=== PATIENT | female | born 1955 | race Caucasian/White ===

== ENCOUNTER 2016-12-31 13:43 | Inpatient (IN) ==
[2016-12-31] MEDS ORDERED: ONDANSETRON 4 MG/2 ML VIAL IM STA (14:03)
[2016-12-31] MEDS ORDERED: methylPREDNISolone SOD SUC 125 MG/2 ML VIAL IV STA (14:03)
[2016-12-31] MEDS ORDERED: SODIUM CHLORIDE 0.9% 1,000 ML IV STA (14:05)
--- NOTE | 2016-12-31 14:09 | Emergency Department Note ---
Ines Darling Brittany, am scribing for, and in the presence of, Dav Packer MD 14: 05. Birdie Darling James D, MD, personally performed the services described in this documentation, ascribed by Jaida Chacon in my presence, and it is both accurate and complete . Arrival - Arrival Chief Complaint: Non-Specific Stated Complaint: strep throat/back pain, fever ED Nursing Triage Note: pt has strep throat and back onset yesterday. Mode of Arrival: Wheelchair Limitations: No Limitations Source: Patient, RN Notes Reviewed Time Seen by Provider: 12/31/16 13:53 - History of Present Illness HPI Narrative: This is a 61 y/o white female, who presents to the ED with c/o back pain which started yesterday. She states she was seen yesterday at a walk in clinic and was DX with strep throat. She states the back pain started after she was "swabbed". She notes a sputum productive cough, fever and chills. She states the fever is subjective. She notes being SOB as well. She reports she is on home o2. She notes CP which started 1.5 hours ago. She describes the chest pain as a sharp pain which is constant. She reports she smokes 1/2 PPD. She denies a sore throat. She reports vomiting but this appears chronic from some unknown reason. Pt has no other complaints/pain in the ED at this time. Pt has a PMHx of HTN, COPD, and OA. Pt denies a surgical Hx. Pt denies a family medical Hx. Pt is a current every day smoker. Onset (ago): day(s) (Started yesterday) Consistency: constant Severity: moderate Allergies/Adverse Reactions: Allergies Allergy/AdvReac Type Severity Reaction Status Date / Time Sulfa (Sulfonamide Allergy Unknown/Unable Verified 12/31/16 13:49 Antibiotics) to obtain Home Medications: Home Medications Medication Instructions Recorded Confirmed Type Albuterol Sulfate [Ventolin HFA] 2 puffs INH Q4H PRN 12/31/16 12/31/16 History Amitriptyline [Elavil] 75 mg PO BID 12/31/16 12/31/16 History Atenolol [Atenolol] 50 mg PO QAM 12/31/16 12/31/16 History Diclofenac Sodium 75 mg PO BID 12/31/16 12/31/16 History Esomeprazole Magnesium [Nexium] 40 mg PO QAM 12/31/16 12/31/16 History Fluticasone/Salmeterol 500-50 2 puff INH BID 12/31/16 12/31/16 History [Advair 500-50] Oxycodone HCl/Acetaminophen 1 each PO Q4H PRN 12/31/16 12/31/16 History [Oxycodone-Acetaminophen 10-325] Penicillin Vk Tab 500 mg PO Q12HR 12/31/16 12/31/16 History Review of System - Review of System 12 point system: reviewed and no additional remarkable complaints except as stated - Review of System Constitutional: Present: chills, fever Respiratory: Present: cough Cardiovascular: Present: chest pain, dyspnea on exertion Musculoskeletal: Present: back pain Medical,Surgical,& Family Hx - Medical History Cardio: History of: Hypertension Respiratory: History of: COPD Musculoskeletal: History of: Osteoporosis - Social History Smoking Status: Current every day smoker Frequency of Alcohol Use: None Type of Drug Use: None Exam Vital Signs: Vital Signs Temperature 98.4 F 12/31/16 13:45 Pulse Rate 105 H 12/31/16 14:49 Respiratory Rate 20 12/31/16 14:49 Blood Pressure 156/118 12/31/16 13:45 O2 Sat by Pulse Oximetry 99 12/31/16 14:49 GENERAL: This is a chronically and acutely ill-appearing white female in mild respiratory distress. VITAL SIGNS: Reviewed HEENT: Head is atraumatic and normocephalic. Pupils are equal round react to light. Extraocular movements are intact. There is posterior oropharyngeal erythema without exudates. NECK: Neck is soft and supple without tenderness. There are no masses. There is no lymphadenopathy. LUNGS: Rhonchi present in the left base. Chest rises symmetrically. There is no chest wall tenderness. CV: Heart is rapid rate, regular rhythm without murmurs rubs or gallops. ABDOMEN: Abdomen is soft, nontender to palpation. There are no abdominal abnormal masses palpated. There is no organomegaly. Bowel sounds are present and active. Back: Patient has profound kyphoscoliosis of the thoracic spine. SKIN: Skin is warm and dry. No rash. EXTREMITIES: Patient has full range of motion without tenderness. There is no pedal edema. NEUROLOGIC: Awake alert and oriented 4. Cranial nerves II through XII are grossly intact. Motor is 5 over 5 in all extremities bilaterally. Deep tendon reflexes are 2+ and bilaterally equal. Course - Consultations Consultation #1: Discussed with hospitalist. Patient will be admitted to their service. Time: 15:39 Procedures - ABG Interpretation ABG Interpretation 1 Interpretation: respiratory alkalosis (Mild) Results - Labs CBC & BMP: 12/31/16 14:42 12/31/16 14:42 Lab Results: I have reviewed the patients labs Labs: Laboratory Tests 12/31/16 14:30 ABG pH 7.462 H ABG pCO2 30.1 L ABG pO2 70.5 L ABG HCO3 23.4 ABG Total CO2 18.2 L ABG O2 Saturation 94.5 L Laboratory Tests 12/31/16 14:42 Troponin I < 0.015 - EKG EKG results: interpreted by ERMD - Impressions EKG: Sinus tachycardia with a rate of 127, right axis deviation, nonspecific ST- T wave changes. - Diagnostic Findings Procedure: Chest x-ray: image reviewed by me (Bilateral increased pulmonary markings) Disposition Clinical Impression: Dyspnea, COPD (chronic obstructive pulmonary disease), Chronic respiratory failure, Pharyngitis, Kyphoscoliosis, Hyponatremia Case discussed with: patient Disposition: Still a Patient Condition: Guarded Time of Disposition: 15:38
[2016-12-31] MEDS ORDERED: fentaNYL 100 MCG/2 ML VIAL IV STA (14:31)
[2016-12-31] MEDS ORDERED: METOPROLOL TARTRATE 5 MG/5 ML VIAL IV STA (14:32)
[2016-12-31 14:35] LABS: ABG Base Excess -1.1 MMOL/L (-2.5-2.5); ABG HCO3 23.4 MMOL/L (20-26); ABG Oxygen Saturation 94.5 % (95-100); ABG PCO2 30.1 MM HG (35-48); ABG PH 7.462 (7.35-7.45); ABG PO2 70.5 MM HG (80-95); ABG TCO2 18.2 MMOL/L (23-27)
[2016-12-31] MEDS ORDERED: cefTRIAXone 1,000 MG in SODIUM CHLORIDE 0.9% 100 ML IV STA (14:37)
[2016-12-31] MEDS ORDERED: methylPREDNISolone SOD SUC 125 MG/2 ML VIAL ONE (14:41)
[2016-12-31] MEDS ORDERED: ONDANSETRON 4 MG/2 ML VIAL ONE (14:41)
--- NOTE | 2016-12-31 14:43 | XRay Report ---
Portable chest Date: 12/31/2016 Clinical history: Shortness of breath Comparison: None Technique: Portable AP sitting chest Findings: The heart is at least minimally enlarged with uncoiling of the aorta. Prominent pulmonary vasculature/richy. Expiratory chest with diffuse parenchymal findings especially at the left lung base. Multiple bilateral prior rib fractures with chronic deformity of the ribs. Osteopenia with degenerative changes. Bilateral carotid artery calcification. Widening of the superior mediastinum with deviation of the trachea to the right. Impression: Limited expiratory chest. Cardiomegaly with chronic scarring. Prominent pulmonary vasculature/richy Additional atelectasis/infiltration/edema especially at the left lung base. Multiple old healed bilateral rib fractures. Incidental carotid artery calcification. Widening of the superior mediastinum which could related tortuous vessels, enlargement of the thyroid gland, etc. Follow-up chest x-ray recommended. PROCEDURE INTERPRETED AT [facility] DEPARTMENT OF RADIOLOGY Final Report Signed by: Dr. Lyla Mariee
[2016-12-31] MEDS: ALBUTEROL 2.5 MG/3 ML NEB RESP TX SCH ×2 (14:44→15:38)
--- NOTE | 2016-12-31 14:51 | EKG Report ---
Stationary ECG Study [facility] ER Test Date: 12/31/2016 2:49:19 PM Pat Name: MARIE MOLINA Department: Room: Gender: F Twisting Operator: : [id number] Requested by: Dav Ledesma Order Number: [id number] Reading MD: JULIANE CELIS Intervals [place] Rate: 127 P: 41 WY: 157 QRS: 106 QRSD: 96 T: 30 QT: 309 QTc: 384 Interpretive Statements SINUS TACHYCARDIA MARKED RIGHT AXIS DEVIATION Electronically Signed On 12-31-16 15:45:40 CDT by JULIANE CELIS [email or web address]
[2016-12-31 15:19] LABS: Basophils # 0.1 10*3/uL (0.0-0.2); Basophils % 0.6 % (0.0-0.8); Eosinophils % 0.1 % (0.00-10.9); Hematocrit 37.6 VOL% (35.7-47.0); Hemoglobin 16.2 GM/DL (12.0-16.0); Immature Granulocytes % 0.5 %; Immature Granulocytes Absolute 0.07 #; Lymphocytes # 3.2 10*3/uL (1.4-4.0); Lymphocytes % 22.3 % (21.3-54.2); Mean Corpuscular HGB Conc 43.1 GM/DL (32-36); Mean Corpuscular Hemoglobin 40 PG (27-34); Mean Corpuscular Volume 92.6 FL (87-102); Mean Platelet Volume 9.9 FL (9.6-12.0); Monocytes % 7.2 % (1.7-12.7); Neutrophils # 9.9 10*3/uL (1.4-7.4); Neutrophils % 69.3 % (38.7-73.9); Platelet Count 416 T/CUMM (130-400); Red Blood Count 4.06 MC/CUMM (3.8-5.5); Red Cell Distribution Width 17.6 % (9.3-17.3); White Blood Count 14.3 T/CUMM (4-12)
[2016-12-31 15:24] LABS: PT Patient Result 10.9 SECS; Partial Thromboplastin Time 32.5 SECS (0-40)
[2016-12-31 15:27] LABS: Alanine Aminotransferase 23 U/L (13-56); Alkaline Phosphatase 114 U/L (45-117); Aspartate Amino Transferase 22 U/L (0-37); Blood Urea Nitrogen 4 MG/DL (7-18); Calcium 9.5 MG/DL (8.5-10.1); Glucose 100 MG/DL (74-106); Osmolality,Calculated 253.1 MOS/KG (273-304); Potassium 3.7 MMOL/L (3.5-5.1); Sodium 128 MMOL/L (136-145); Total Protein 7.8 G/DL (6.4-8.3); Troponin I Only < 0.015 NG/ML (0.00-0.045)
[2016-12-31] MEDS ORDERED: fentaNYL 100 MCG/2 ML VIAL ONE (15:27)
[2016-12-31] MEDS ORDERED: METOPROLOL TARTRATE 5 MG/5 ML VIAL IV ONE (15:43)
[2016-12-31] MEDS ORDERED: ACETAMINOPHEN 325 MG TABLET PO PRN (16:17)
[2016-12-31] MEDS ORDERED: ALBUTEROL 2.5 MG/3 ML NEB RESP TX PRN ×2 (16:17→17:22)
[2016-12-31] MEDS ORDERED: SODIUM CHLORIDE 0.9% 1,650 ML IV ONE (16:24)
--- NOTE | 2016-12-31 16:29 | CT Report ---
CT chest PE study Indication: Tachycardia, dyspnea Comparison: None Technique: Multiple axial tomographic images of the chest were obtained after the administration of 80 cc Omnipaque 350 intravenous contrast. PE protocol followed. Coronal and sagittal maximum intensity projection images provided. Findings: Study somewhat limited secondary to motion without definitive segmental or larger pulmonary embolism demonstrated. Mild cardiomegaly. Mild to moderate nonspecific bilateral hilar lymph node prominence. Emphysematous change of the lungs bilaterally. Patchy opacification within the inferior aspect of the left lower lobe is suspicious for pneumonia. Chronic change of the lungs present. Visualized upper abdomen demonstrates no acute abnormality. Diffuse osteopenia. Multiple chronic appearing bilateral rib deformities, many of which appear nonunited. Multiple severe compression deformities including T4, T5, T6, T7, T8, T9. Moderate compression deformities demonstrated T10, T11, T12, and L1. Significant accentuation of normal thoracic kyphosis. Chronic appearing manubrial fracture deformity. Bilateral saline breast prostheses. IMPRESSION: Limited exam secondary to respiratory motion without definitive segmental or larger pulmonary embolism demonstrated. Emphysematous change of the lungs. Patchy opacification of the inferior left lower lobe suspicious for pneumonia. Mild cardiomegaly. Mild/moderate nonspecific prominence of bilateral hilar lymph nodes. Multiple moderate to severe thoracic compression deformities with accentuation of normal thoracic kyphosis. Compression deformities are most likely chronic. There are multiple chronic appearing bilateral rib fractures as well. Other/detailed findings as above. The CT exam was performed using one or more of the following dose reduction techniques: Automated exposure control, adjustment of the mA and/or kV according to patient size, or use of iterative reconstruction technique. PROCEDURE INTERPRETED AT [facility] DEPARTMENT OF RADIOLOGY Final Report Signed by: Dr Toni Adams
[2016-12-31] MEDS ORDERED: CARVEDILOL 3.125 MG TABLET ONE (16:35)
[2016-12-31] MEDS ORDERED: CARVEDILOL 3.125 MG TABLET PO STA (16:41)
[2016-12-31] MEDS ORDERED: cefTRIAXone 1,000 MG VIAL ONE (16:49)
--- NOTE | 2016-12-31 16:50 | Hospitalist History & Physical ---
<Kashmir Maldonado - Last Filed: 12/31/16 16:28> Assessment and Plan (1) Dyspnea Status: Acute Assessment and plan: Chronic issue for patient. Supplemental O2. Abgs in the am. Place in unit. Monitor O2. Current Visit: Yes (2) COPD (chronic obstructive pulmonary disease) Status: Acute Assessment and plan: Breathing treatments. IV steroids. Current Visit: Yes (3) Chronic respiratory failure Status: Acute Assessment and plan: Place patient in the ICU for close monitoring. breathing treatments o2 saturations. Current Visit: Yes (4) Pharyngitis Status: Acute Assessment and plan: Possible cause of elevated WBC. IV antibiotics. Current Visit: Yes (5) Hyponatremia Status: Acute Assessment and plan: IVF. Recheck in am Current Visit: Yes (6) Hypertension Status: Acute Assessment and plan: Prn antihypertensive. Continue to monitor. Restart home meds. Current Visit: Yes History of Present Illness Chief complaint: shortness of breath History of present illness: Ms. García is a 61 year old white female with a history of hypertension, COPD on home O2, rheumatoid arthritis, chronic back pain with broken vertebrae presented to the ED today for further evaluation of shortness of breath, chest pain, and back pain. Patient is accompanied by her niece who is present at the bedside. Pt. states that she was seen yesterday at a clinic in [place], [place] and diagnosed with strep throat. While being swabbed, pt states that she dry gagged which caused her to jump and she began to experience back pain. Pt. also reports that when she woke up this morning she began to have shortness of breath and chest pain. Pt. reports wearing home O2 but states she hasn't used it in 3 days. Pt. states the chest pain is sharp, midsternal, and does not radiate. Pt reports subjective fever, chills, weakness, shortness of breath, and mild dizziness. She also reports nausea with dry heaving and mild abdominal pain. On examination, pt is mildly distressed, hypertensive, tachypneic and tachycardiac. Labs in ED reveal WBC of 14.3 and Na 128. Pt. case has been discussed with Dr. Packer and Dr. Jeter. Pt. has been accepted onto our service. She will be admitted to the hospitalist service and placed in ICU for close monitoring. Home Medications Medication Instructions Recorded Confirmed Type Albuterol Sulfate [Ventolin HFA] 2 puffs INH Q4H PRN 12/31/16 12/31/16 History Amitriptyline [Elavil] 75 mg PO BID 12/31/16 12/31/16 History Atenolol [Atenolol] 50 mg PO QAM 12/31/16 12/31/16 History Diclofenac Sodium 75 mg PO BID 12/31/16 12/31/16 History Esomeprazole Magnesium [Nexium] 40 mg PO QAM 12/31/16 12/31/16 History Fluticasone/Salmeterol 500-50 2 puff INH BID 12/31/16 12/31/16 History [Advair 500-50] Oxycodone HCl/Acetaminophen 1 each PO Q4H PRN 12/31/16 12/31/16 History [Oxycodone-Acetaminophen 10-325] Penicillin Vk Tab 500 mg PO Q12HR 12/31/16 12/31/16 History Allergies Allergy/AdvReac Type Severity Reaction Status Date / Time Sulfa (Sulfonamide Allergy Unknown/Unable Verified 12/31/16 13:49 Antibiotics) to obtain Medical,Surgical,& Family Hx - Medical History Cardio: History of: Hypertension Respiratory: History of: COPD Musculoskeletal: History of: Osteoporosis - Social History Smoking Status: Current every day smoker Frequency of Alcohol Use: None Type of Drug Use: None Marital Status: Single Lives With:: Alone Functional capacity: independent ambulation - Constitutional Constitutional: Present: chills, fever(s), night sweats, weakness - EENT Eyes: Absent: blurry vision Ears: Absent: decreased hearing Nose, mouth and throat: Absent: headache(s) - Cardiovascular Cardiovascular: Present: dyspnea, dyspnea on exertion. Absent: edema - Respiratory Respiratory: Present: dyspnea - Gastrointestinal Gastrointestinal: Present: abdominal pain, nausea. Absent: vomiting - Genitourinary Genitourinary: Absent: difficulty urinating - Musculoskeletal Musculoskeletal: Present: back pain - Neurological Neurological: Present: dizziness. Absent: confusion - Psychiatric Psychiatric: Absent: confusion - Endocrine Endocrine: Present: fatigue Exam - Constitutional Vitals: Period Temp Pulse Resp BP Sys/Gaspar Pulse Ox Last 24 Hr 98.4 F 105-134 20-22 156/118 96-99 General appearance: normal weight, mild distress - Head Head exam: Present: normal inspection, normocephalic - Eye Eye exam: Present: EOMI Pupils: Present: ARIADNA - ENT ENT exam: Present: normal exam - Respiratory Respiratory exam: Present: other (coarse) - Cardiovascular Cardiovascular exam: Present: tachycardia - GI/Abdominal GI/Abdominal exam: Present: tenderness, soft - Extremities Exam Extremities exam: Absent: edema - Neurological Exam Neurological exam: Present: alert, oriented X3 - Psychiatric Psychiatric exam: Present: normal affect, normal mood - Skin Skin exam: Present: normal color, warm, dry Results - Labs CBC & BMP: 12/31/16 14:42 12/31/16 14:42 Lab Results: I have reviewed the past 24 hour labs <Gladys Jeter - Last Filed: 12/31/16 18:26> Assessment and Plan (1) Hyponatremia Status: Acute Assessment and plan: Normal saline bolus of 1 L in the ER will repeat bolus 1, continue normal saline at 125 Current Visit: Yes (2) Left lower lobe pneumonia Status: Acute Assessment and plan: Cefepime IV blood cultures 2 already ordered, lactic acid normal Current Visit: Yes (3) Chronic pain disorder Status: Acute Assessment and plan: Patient looks like she is in drug withdrawal or 1 of Dilaudid and consult pain management and restart her Percocet Current Visit: Yes (4) COPD exacerbation Status: Acute Assessment and plan: Duo nebs, antibiotics and steroids Current Visit: Yes (5) Restless leg syndrome Status: Acute Assessment and plan: Continue high-dose Elavil, need sleep eval Current Visit: Yes (6) Constipation Status: Acute Assessment and plan: Mag citrate and fleets may need to disimpact Current Visit: Yes (7) Hypertension Status: Acute Assessment and plan: Coreg 12.5 mg p.o. twice daily, start diltiazem drip, will give hydralazine as needed Current Visit: Yes (8) Obstructive sleep apnea Status: Acute Assessment and plan: Needs sleep evaluation has all the symptoms of obstructive sleep apnea and is on chronic opioids and has severe chronic restless leg. Current Visit: Yes (9) Sepsis Status: Acute Assessment and plan: Will recheck strep screen, blood cultures pending, UA positive for infection will consult ID, chest CT suggests left lower lobe pneumonia continue cefepime Current Visit: Yes (10) Tachycardia Status: Acute Assessment and plan: More likely due to pain and dehydration then to illness. 1 L normal saline given in the ER will repeat bolus and run normal saline at 125 Current Visit: Yes History of Present Illness History of present illness: Ms. García is a 61 year old female seen and examined. Agree with above. Patient complains of alot of pain. Has symptoms of severe urbano, routinely takes percocet and acts like she is in drug withdrawal. Live between [facility] and [place], but has not found a doctor here to follow her probably due to narcotic usage. Daughter at bedside. Impossible to evaluate as she is tender everywhere you touch her. Medical,Surgical,& Family Hx - Surgical History Abdominal Surgeries: Surgical HX of: Abdominal Surgery Additional Surgical History: back surgery - Family History Family History: Denies;: Family Cancer, Family Diabetes, Family Heart Disease, Family Stroke - Cardiovascular Cardiovascular: Present: chest pain at rest. Absent: chest pain with activity - Respiratory Respiratory: Present: dyspnea on exertion, wheezing, change in phlegm color - Gastrointestinal Gastrointestinal: Present: constipation - Genitourinary Genitourinary: Present: dysuria - Musculoskeletal Musculoskeletal: Present: arthralgias - Psychiatric Psychiatric: Present: anxiety, depression - Endocrine Endocrine: Present: cold intolerance - Hematologic/Lymphatic Hematologic/Lymphatic: Present: easy bleeding, easy bruising Exam - Constitutional Vitals: Period Temp Pulse Resp BP Sys/Gaspar Pulse Ox Last 24 Hr 98.1 F-98.4 F 105-156 18-28 156-190/109-125 94-99 - Eye Eye exam: Absent: scleral icterus Pupils: Present: normal accommodation - ENT ENT exam: Present: normal external ear exam - Neck Neck exam: Absent: lymphadenopathy, thyromegaly - Respiratory Respiratory exam: Present: decreased breath sounds, wheezes, other - GI/Abdominal GI/Abdominal exam: Present: normal bowel sounds - Extremities Exam Extremities exam: Present: normal inspection, normal capillary refill - Neurological Exam Neurological exam: Present: CN II-XII intact, reflexes normal. Absent: motor sensory deficit Results - Labs CBC & BMP: 12/31/16 14:42 12/31/16 14:42 Labs: Urine drug screen positive for opiates, UA positive for infection. - Diagnostic Findings Procedure: Chest x-ray: report reviewed by me (Questionable infiltrate in left lower lung), CT - chest: report reviewed by me (Chest CT shows infiltrate in the left lower lobe and multiple old chronic rib fractures and compression fractures all of which are old. No widening of mediastinum noted)
[2016-12-31 17:48] LABS: Bacteria,Urine Occasional /HPF (Few); Bilirubin,Urine Negative (Negative); Blood, Urine Trace mg/dL (Negative); Glucose,Urine (UA) Negative (Negative); Ketones,Urine 100 mg/dL (Negative); Nitrite,Urine Negative (Negative); Protein,Urine Negative; RBC,Urine 11 /HPF (0-4); Squamous Epithelial Cell,Urine Occasional /HPF (0-10); Urine Color Yellow (Yellow); Urine Specific Gravity 1.005 (1.001-1.035); WBC,Urine 45 /HPF (0-6)
[2016-12-31] MEDS ORDERED: HYDROmorphone 2 MG/1 ML VIAL IV ONE (17:50)
[2016-12-31] MEDS ORDERED: DILTIAZEM 100 MG VIAL.ADD IV ONE (17:52)
[2016-12-31 17:53] LABS: Apearance,Urine HAZY (Clear); Urine Urobilinogen 0.2 EU/DL (0.2-1.0)
[2016-12-31] MEDS ORDERED: SODIUM CHLORIDE 0.9% 100 ML IV ONE (17:53)
[2016-12-31 17:56] LABS: Barbiturates Screen,Urine Negative (Negative); Benzodiazepines Screen,Urine Negative (Negative); Cannabinoid Screen,Urine Negative (Negative); Opiate Screen,Urine Positive (Negative); Phencyclidine Screen,Urine Negative (Negative)
[2016-12-31] MEDS ORDERED: HYDROmorphone 2 MG/1 ML VIAL ONE (17:56)
[2016-12-31] MEDS ORDERED: KETOROLAC 15 MG/1 ML VIAL IV PRN (18:04)
[2016-12-31] MEDS ORDERED: SODIUM PHOSPHATE ENEMA 133 ML BOTTLE RECTAL ONE (18:07)
[2016-12-31] MEDS ORDERED: MAGNESIUM CITRATE 300 ML BOTTLE PO ONE (18:07)
[2016-12-31] MEDS: DILTIAZEM INJ 100 MG in SODIUM CHLORIDE 0.9% 100 ML IV SCH (18:08)
[2016-12-31] MEDS ORDERED: SODIUM CHLORIDE 0.9% 1,000 ML IV ONE (18:22)
[2016-12-31] MEDS: SODIUM CHLORIDE 0.9% 1,000 ML IV SCH ×2 (18:28→23:01)
[2016-12-31] MEDS: hydrALAZINE 20 MG/1 ML VIAL IV PRN (18:35)
[2016-12-31] MEDS: methylPREDNISolone SOD SUC 40 MG/1 ML VIAL IV SCH (18:35)
[2016-12-31] MEDS: CEFEPIME 1,000 MG in SODIUM CHLORIDE 0.9% 100 ML IV SCH (18:44)
--- NOTE | 2016-12-31 18:52 | XRay Report ---
XR KUB Indication: Constipation Comparison: None. Technique: Supine AP image of the abdomen was obtained. Findings: Ill-defined density and mass effect within the pelvis may simply reflect a distended urinary bladder. This portion of the pelvis is not well visualized. No organomegaly is present. The bowel gas pattern demonstrates no significant abnormality. Impression: 1. Ill-defined density and mass effect within the pelvis is suggested to represent urinary bladder. 12/31/2016 6:48 PM PROCEDURE INTERPRETED AT [facility] DEPARTMENT OF RADIOLOGY Final Report Signed by: Dr. Didier Vasquez
[2016-12-31] MEDS: oxyCODONE/ACETAMINOPHEN 5-325 MG TABLET PO PRN ×2 (19:04→23:11)
[2016-12-31] MEDS: ALBUTEROL/IPRATROPIUM 3 ML NEB RESP TX SCH ×2 (19:31→23:14)
[2016-12-31] MEDS ORDERED: LEVOFLOXACIN INJ 750 MG in PREMIX 1 EACH IV SCH (20:00)
[2016-12-31] MEDS: AMITRIPTYLINE 25 MG TABLET PO SCH (20:29)
[2016-12-31] MEDS: ENOXAPARIN 40 MG/0.4 ML SYRINGE SUBCUT SCH (20:29)
[2016-12-31] MEDS: FLUTICASONE/SALMETEROL 500-50 DISKUS 14 DOSE INH SCH (20:30)
[2016-12-31] MEDS ORDERED: DICLOFENAC SODIUM 75 MG TABLET PO SCH (21:00)
[2017-01-01] MEDS: methylPREDNISolone SOD SUC 40 MG/1 ML VIAL IV SCH ×2 (01:32→09:50)
[2017-01-01] MEDS: CEFEPIME 1,000 MG in SODIUM CHLORIDE 0.9% 100 ML IV SCH ×2 (01:33→09:50)
[2017-01-01] MEDS: ALBUTEROL/IPRATROPIUM 3 ML NEB RESP TX SCH ×6 (03:54→23:58)
[2017-01-01] MEDS: oxyCODONE/ACETAMINOPHEN 5-325 MG TABLET PO PRN ×5 (03:59→20:48)
[2017-01-01 05:51] LABS: Basophils % 0.2 % (0.0-0.8); Eosinophils % 0.1 % (0.00-10.9); Hematocrit 39.9 VOL% (35.7-47.0); Hemoglobin 14.5 GM/DL (12.0-16.0); Immature Granulocytes % 0.7 %; Immature Granulocytes Absolute 0.12 #; Lymphocytes % 18.6 % (21.3-54.2); Mean Corpuscular HGB Conc 36.3 GM/DL (32-36); Mean Corpuscular Hemoglobin 32 PG (27-34); Mean Corpuscular Volume 86.7 FL (87-102); Mean Platelet Volume 10.5 FL (9.6-12.0); Monocytes # 0.3 10*3/uL (0.11-0.8); Monocytes % 1.8 % (1.7-12.7); Neutrophils # 12.8 10*3/uL (1.4-7.4); Neutrophils % 78.6 % (38.7-73.9); Platelet Count 374 T/CUMM (130-400); Red Cell Distribution Width 14.4 % (9.3-17.3); White Blood Count 16.2 T/CUMM (4-12)
[2017-01-01] MEDS: DILTIAZEM INJ 100 MG in SODIUM CHLORIDE 0.9% 100 ML IV SCH ×3 (05:57→20:00)
[2017-01-01 06:00] LABS: Giant Platelets Few; Hypochromasia Slight; Platelet Estimate Adequate
[2017-01-01 06:05] LABS: Cholesterol 232 MG/DL (50-200); HDL Cholesterol 36 MG/DL (40-60); Magnesium 1.6 MG/DL (1.8-2.4); Risk Ratio 6.44; Thyroid Stimulating Hormone 0.126 uIU/ml (0.358-3.74); Triglycerides 97 MG/DL (2-150); Troponin I Only < 0.015 NG/ML (0.00-0.045); VLDL CHOLESTEROL 19.4 MG/DL
[2017-01-01 06:12] LABS: Calcium 8.2 MG/DL (8.5-10.1); Osmolality,Calculated 252.4 MOS/KG (273-304); Potassium 3.9 MMOL/L (3.5-5.1)
[2017-01-01] MEDS: NICOTINE 21 MG/24 HR PATCH TRANSDERM SCH (08:04)
[2017-01-01] MEDS: FLUTICASONE/SALMETEROL 500-50 DISKUS 14 DOSE INH SCH ×2 (08:04→20:50)
[2017-01-01] MEDS: AMITRIPTYLINE 25 MG TABLET PO SCH (08:04)
[2017-01-01] MEDS: SODIUM CHLORIDE 0.9% 1,000 ML IV SCH ×2 (08:05→08:36)
[2017-01-01] MEDS ORDERED: ATENOLOL 50 MG TABLET PO SCH (09:00)
[2017-01-01] MEDS ORDERED: CARVEDILOL 12.5 MG TABLET PO SCH (09:00)
[2017-01-01] MEDS: hydrALAZINE 20 MG/1 ML VIAL IV PRN ×2 (09:51→13:39)
[2017-01-01] MEDS ORDERED: methIMAzole 10 MG TABLET PO SCH (10:00)
[2017-01-01] MEDS ORDERED: PROPRANOLOL LA 80 MG CAPSULE PO SCH (10:30)
--- NOTE | 2017-01-01 11:43 | Infectious Disease Consult ---
Assessment and Plan (1) Oropharyngeal candidiasis Status: Acute Assessment and plan: We will treat with fluconazole 100 mg daily 5 days. Current Visit: Yes (2) COPD (chronic obstructive pulmonary disease) Status: Acute Assessment and plan: She is on home oxygen but unfortunately still smokes. She has a lot of scarring in lungs on imaging. I am not impressed with pneumonia of left lung base, patient does not have any impressive symptoms of pneumonia clinically. I would not have prescribed antibiotics. Consider stopping the levofloxacin and cefepime. Current Visit: Yes (3) Chronic pain disorder Status: Acute Current Visit: Yes (4) Pharyngitis Status: Acute Assessment and plan: Recently diagnosed with streptococcal pharyngitis and had been on penicillin which would be nieves the repeat episodes of his negative for strep. Normally the treatment is 10 days of oral penicillin. If the levofloxacin and cefepime was stopped and patient can get 1 dose of benzathine penicillin 1.2 million units intramuscularly. Thank you very much for the consult. Current Visit: Yes History of Present Illness Chief complaint: Strep throat History of present illness: Ms. García is a 61 year old female who presented to the emergency room yesterday with shortness of breath and sore throat. She said she was diagnosed with strep throat in a clinic on the [facility] about 4 days ago and given penicillin 500 g twice a day which she was taking until she came in. Said the sore throat has not improved and may have gotten a little worse. She has multiple comorbidities including COPD and chronic low back pain on opioid medications. Today her main concern was the fact that she was getting her pain meds often and off for her excruciating pain. No fever or other constitutional symptoms. Patient was last in about 4 months ago with pneumonia and took a long course of antibiotics for that she says. Home Medications Medication Instructions Recorded Confirmed Type Albuterol Sulfate [Ventolin HFA] 2 puffs INH Q4H PRN 12/31/16 12/31/16 History Amitriptyline [Elavil] 75 mg PO BID 12/31/16 12/31/16 History Atenolol [Atenolol] 50 mg PO QAM 12/31/16 12/31/16 History Diclofenac Sodium 75 mg PO BID 12/31/16 12/31/16 History Esomeprazole Magnesium [Nexium] 40 mg PO QAM 12/31/16 12/31/16 History Fluticasone/Salmeterol 500-50 2 puff INH BID 12/31/16 12/31/16 History [Advair 500-50] Oxycodone HCl/Acetaminophen 1 each PO Q4H PRN 12/31/16 12/31/16 History [Oxycodone-Acetaminophen 10-325] Penicillin Vk Tab 500 mg PO Q12HR 12/31/16 12/31/16 History Oxycodone HCl [Oxycontin] 60 mg PO BID 01/01/17 01/01/17 History Allergies Allergy/AdvReac Type Severity Reaction Status Date / Time Sulfa (Sulfonamide Allergy Unknown/Unable Verified 12/31/16 13:49 Antibiotics) to obtain 12 point system: reviewed and no additional remarkable complaints except as stated (Per HPI) Medical,Surgical,& Family Hx - Medical History Cardio: History of: Hypertension Psychological: History of: Depression Respiratory: History of: COPD Gastrointestinal: History of: GERD Musculoskeletal: History of: Back/Neck Problems, Osteoporosis - Surgical History Abdominal Surgeries: Surgical HX of: Abdominal Surgery - Family History Family History: Denies;: Family Cancer, Family Diabetes, Family Heart Disease, Family Stroke - Social History Smoking Status: Current every day smoker Frequency of Alcohol Use: None Type of Drug Use: None Infectious Disease Exam H&P - Constitutional Vitals: Vital Signs Temp Pulse Resp BP Pulse Ox 97.4 F L 118 H 28 H 151/107 95 01/01/17 08:00 01/01/17 11:00 01/01/17 11:00 01/01/17 11:00 01/01/17 11:00 Intake and Output 12/31/16 01/01/17 01/01/17 23:59 07:59 15:59 Intake Total 4360 / 4360 1680 / 1680 100 / 100 Output Total 700 / 700 1225 / 1225 Balance 3660 / 3660 455 / 455 100 / 100 Intake: IV 4000 / 4000 1200 / 1200 100 / 100 Maxipime 1,000 mg In Ns 100 / 100 100 / 100 100 / 100 100 ml @ 200 mls/hr IV Q8H VIJAY Rx#:[id number] Cardizem Inj 100 mg In Ns 100 / 100 100 ml @ 5 MG/HR 5 mls/ hr IV TITRATE VIJAY Rx#: [id number] Levaquin Inj 750 mg In 150 / 150 Premix 1 Each @ 100 mls/ hr IV Q24H VIJAY Rx#: [id number] Ns 1,000 ml @ 125 mls/hr 3650 / 3650 1000 / 1000 IV .Q8H VIJAY Rx#: [id number] Rocephin 1,000 mg In Ns 100 / 100 100 ml @ 200 mls/hr IV 1X ED STA Rx#:[id number] Oral 360 / 360 480 / 480 Output: Urine 700 / 700 1225 / 1225 Other: Emesis 0 Voiding Method Bedpan Bedpan # Bowel Movements 1 0 Weight 55.111 kg 55.747 kg Patient Weight 01/01/17 23:59 Weight 55.747 kg Exam: General: Patient uncomfortable due to pain however she was completely nontoxic appearing HEENT: Mucous membranes pink and moist, anicteric acyanotic, ARIADNA, significant whitish exudates noted on pharynx Neck: Supple, no thyroid gland enlargement, no lymphadenopathy Respiratory system: Breath sounds vesicular, no crepitations or wheezes Cardiovascular: Normal S1 and S2, no murmurs appreciated Abdomen: Normal bowel sounds, soft nontender throughout, no organomegaly or mass Genitourinary: No suprapubic pain or bladder distention Extremities: no edema Skin: No rash Reports - Labs CBC & BMP: 01/01/17 04:35 01/01/17 04:35 Labs: Laboratory Results - last 24 hr 12/31/16 12/31/16 12/31/16 14:30 14:42 14:42 WBC 14.3 H RBC 4.06 Hgb 16.2 H Hct 37.6 MCV 92.6 MCH 40 H MCHC 43.1 H RDW 17.6 H Plt Count 416 H MPV 9.9 Neut % (Auto) 69.3 Lymph % (Auto) 22.3 Leslie % (Auto) 7.2 Eos % (Auto) 0.1 Baso % (Auto) 0.6 Neut # (Auto) 9.9 H Lymph # (Auto) 3.2 Leslie # (Auto) 1.0 H Eos # (Auto) 0.0 Baso # (Auto) 0.1 Immature Gran % 0.5 Nucleated RBC % 0.0 Immature Gran # 0.07 Nucleated RBCs # 0.00 Platelet Estimate Giant Platelets Immature Plt Fraction 0.0 Hypochromasia INR 1.0 PT Patient/Control Mix 10.9 Circ Anticoag PTT 32.5 ABG pH 7.462 H ABG pCO2 30.1 L ABG pO2 70.5 L ABG HCO3 23.4 ABG Total CO2 18.2 L ABG O2 Saturation 94.5 L ABG Base Excess -1.1 Sodium Potassium Chloride Carbon Dioxide Anion Gap BUN Creatinine GFR Calculation BUN/Creatinine Ratio Glucose Hemoglobin A1c Calculated Osmolality Lactic Acid Calcium Magnesium Total Bilirubin AST ALT Alkaline Phosphatase Troponin I B-Natriuretic Peptide Total Protein Albumin Globulin Albumin/Globulin Ratio Triglycerides Cholesterol LDL Cholesterol VLDL Cholesterol HDL Cholesterol Heart Disease Risk Ratio Free T4 TSH 3rd Generation Urine Color Urine Appearance Urine pH Ur Specific [place] Urine Protein Urine Glucose (UA) Urine Ketones Urine Blood Urine Nitrate Urine Bilirubin Urine Urobilinogen Urine Leukocytes Urine RBC Urine WBC Ur Squamous Epith Cells Urine Bacteria Ur Culture Indicated? Urine Opiates Screen Ur Barbiturates Screen Ur Phencyclidine Scrn U Amphetamine/Methamph U Benzodiazepines Scrn U Cocaine Metab Screen U Cannabinoids Screen 12/31/16 12/31/16 12/31/16 14:42 14:42 14:42 WBC RBC Hgb Hct MCV MCH MCHC RDW Plt Count MPV Neut % (Auto) Lymph % (Auto) Leslie % (Auto) Eos % (Auto) Baso % (Auto) Neut # (Auto) Lymph # (Auto) Leslie # (Auto) Eos # (Auto) Baso # (Auto) Immature Gran % Nucleated RBC % Immature Gran # Nucleated RBCs # Platelet Estimate Giant Platelets Immature Plt Fraction Hypochromasia INR PT Patient/Control Mix Circ Anticoag PTT ABG pH ABG pCO2 ABG pO2 ABG HCO3 ABG Total CO2 ABG O2 Saturation ABG Base Excess Sodium 128 L Potassium 3.7 Chloride 91 L Carbon Dioxide 25 Anion Gap 15.7 H BUN 4 L Creatinine 0.50 L GFR Calculation 91 BUN/Creatinine Ratio 8.00 Glucose 100 Hemoglobin A1c Calculated Osmolality 253.1 L Lactic Acid 0.7 Calcium 9.5 Magnesium Total Bilirubin 0.60 AST 22 ALT 23 Alkaline Phosphatase 114 Troponin I < 0.015 B-Natriuretic Peptide 41 Total Protein 7.8 Albumin 4.0 Globulin 3.8 H Albumin/Globulin Ratio 1.0 L Triglycerides Cholesterol LDL Cholesterol VLDL Cholesterol HDL Cholesterol Heart Disease Risk Ratio Free T4 TSH 3rd Generation Urine Color Urine Appearance Urine pH Ur Specific [place] Urine Protein Urine Glucose (UA) Urine Ketones Urine Blood Urine Nitrate Urine Bilirubin Urine Urobilinogen Urine Leukocytes Urine RBC Urine WBC Ur Squamous Epith Cells Urine Bacteria Ur Culture Indicated? Urine Opiates Screen Ur Barbiturates Screen Ur Phencyclidine Scrn U Amphetamine/Methamph U Benzodiazepines Scrn U Cocaine Metab Screen U Cannabinoids Screen 12/31/16 12/31/16 12/31/16 16:50 16:50 20:00 WBC RBC Hgb Hct MCV MCH MCHC RDW Plt Count MPV Neut % (Auto) Lymph % (Auto) Leslie % (Auto) Eos % (Auto) Baso % (Auto) Neut # (Auto) Lymph # (Auto) Leslie # (Auto) Eos # (Auto) Baso # (Auto) Immature Gran % Nucleated RBC % Immature Gran # Nucleated RBCs # Platelet Estimate Giant Platelets Immature Plt Fraction Hypochromasia INR PT Patient/Control Mix Circ Anticoag PTT ABG pH ABG pCO2 ABG pO2 ABG HCO3 ABG Total CO2 ABG O2 Saturation ABG Base Excess Sodium Potassium Chloride Carbon Dioxide Anion Gap BUN Creatinine GFR Calculation BUN/Creatinine Ratio Glucose Hemoglobin A1c Calculated Osmolality Lactic Acid 1.0 Calcium Magnesium Total Bilirubin AST ALT Alkaline Phosphatase Troponin I B-Natriuretic Peptide Total Protein Albumin Globulin Albumin/Globulin Ratio Triglycerides Cholesterol LDL Cholesterol VLDL Cholesterol HDL Cholesterol Heart Disease Risk Ratio Free T4 TSH 3rd Generation Urine Color Yellow Urine Appearance Hazy Urine pH 6.0 Ur Specific [place] 1.005 Urine Protein Negative Urine Glucose (UA) Negative Urine Ketones 100 Urine Blood Trace Urine Nitrate Negative Urine Bilirubin Negative Urine Urobilinogen 0.2 Urine Leukocytes Moderate H Urine RBC 11 Urine WBC 45 Ur Squamous Epith Cells Occasional Urine Bacteria Occasional Ur Culture Indicated? Ordered separately Urine Opiates Screen Positive H Ur Barbiturates Screen Negative Ur Phencyclidine Scrn Negative U Amphetamine/Methamph Negative U Benzodiazepines Scrn Negative U Cocaine Metab Screen Negative U Cannabinoids Screen Negative 12/31/16 01/01/17 01/01/17 22:32 04:35 04:35 WBC RBC Hgb Hct MCV MCH MCHC RDW Plt Count MPV Neut % (Auto) Lymph % (Auto) Leslie % (Auto) Eos % (Auto) Baso % (Auto) Neut # (Auto) Lymph # (Auto) Leslie # (Auto) Eos # (Auto) Baso # (Auto) Immature Gran % Nucleated RBC % Immature Gran # Nucleated RBCs # Platelet Estimate Giant Platelets Immature Plt Fraction Hypochromasia INR PT Patient/Control Mix Circ Anticoag PTT ABG pH ABG pCO2 ABG pO2 ABG HCO3 ABG Total CO2 ABG O2 Saturation ABG Base Excess Sodium Potassium Chloride Carbon Dioxide Anion Gap BUN Creatinine GFR Calculation BUN/Creatinine Ratio Glucose Hemoglobin A1c 5.8 Calculated Osmolality Lactic Acid 0.7 Calcium Magnesium 1.6 L Total Bilirubin AST ALT Alkaline Phosphatase Troponin I < 0.015 B-Natriuretic Peptide Total Protein Albumin Globulin Albumin/Globulin Ratio Triglycerides 97 Cholesterol 232 H LDL Cholesterol 169.0 VLDL Cholesterol 19.4 HDL Cholesterol 36 L Heart Disease Risk Ratio 6.44 Free T4 TSH 3rd Generation 0.126 L Urine Color Urine Appearance Urine pH Ur Specific [place] Urine Protein Urine Glucose (UA) Urine Ketones Urine Blood Urine Nitrate Urine Bilirubin Urine Urobilinogen Urine Leukocytes Urine RBC Urine WBC Ur Squamous Epith Cells Urine Bacteria Ur Culture Indicated? Urine Opiates Screen Ur Barbiturates Screen Ur Phencyclidine Scrn U Amphetamine/Methamph U Benzodiazepines Scrn U Cocaine Metab Screen U Cannabinoids Screen 01/01/17 01/01/17 01/01/17 04:35 04:35 04:35 WBC 16.2 H RBC 4.60 Hgb 14.5 Hct 39.9 MCV 86.7 L MCH 32 MCHC 36.3 H RDW 14.4 Plt Count 374 MPV 10.5 Neut % (Auto) 78.6 H Lymph % (Auto) 18.6 L Leslie % (Auto) 1.8 Eos % (Auto) 0.1 Baso % (Auto) 0.2 Neut # (Auto) 12.8 H Lymph # (Auto) 3.0 Leslie # (Auto) 0.3 Eos # (Auto) 0.0 Baso # (Auto) 0.0 Immature Gran % 0.7 Nucleated RBC % 0.0 Immature Gran # 0.12 Nucleated RBCs # 0.00 Platelet Estimate Adequate Giant Platelets Few Immature Plt Fraction 0.0 Hypochromasia Slight INR PT Patient/Control Mix Circ Anticoag PTT ABG pH ABG pCO2 ABG pO2 ABG HCO3 ABG Total CO2 ABG O2 Saturation ABG Base Excess Sodium 126 L Potassium 3.9 Chloride 92 L Carbon Dioxide 18 L Anion Gap 19.9 H BUN 6 L Creatinine 0.40 L GFR Calculation 99 BUN/Creatinine Ratio 15.00 Glucose 133 H Hemoglobin A1c Calculated Osmolality 252.4 L Lactic Acid Calcium 8.2 L Magnesium Total Bilirubin AST ALT Alkaline Phosphatase Troponin I B-Natriuretic Peptide Total Protein Albumin Globulin Albumin/Globulin Ratio Triglycerides Cholesterol LDL Cholesterol VLDL Cholesterol HDL Cholesterol Heart Disease Risk Ratio Free T4 1.28 TSH 3rd Generation Urine Color Urine Appearance Urine pH Ur Specific [place] Urine Protein Urine Glucose (UA) Urine Ketones Urine Blood Urine Nitrate Urine Bilirubin Urine Urobilinogen Urine Leukocytes Urine RBC Urine WBC Ur Squamous Epith Cells Urine Bacteria Ur Culture Indicated? Urine Opiates Screen Ur Barbiturates Screen Ur Phencyclidine Scrn U Amphetamine/Methamph U Benzodiazepines Scrn U Cocaine Metab Screen U Cannabinoids Screen - Reports Microbiology: Microbiology 12/31/16 16:50 Urine Culture - Preliminary Urine,Voided No Growth at 12 hours. 12/31/16 17:31 MRSA Surveillance Culture - Preliminary Nares - Both Nares (Mrsa screen) No MRSA isolated. 12/31/16 04:00 Group A Streptococcus Rapid Screen - Final Throat Negative for Grp A Strep Ag - Diagnostic Findings Procedure: Chest x-ray: image reviewed by me, report reviewed by me (A lot of scarring in both lungs), CT - chest: image reviewed by me, report reviewed by me (Mild infiltrate in left lung base)
--- NOTE | 2017-01-01 11:48 | Pain Management Consult Note ---
Assessment and Plan (1) Chronic pain disorder Status: Acute Assessment and plan: My role here is to provide reasonable bridge dosing of her chronic opioid dependence to mitigate withdrawal and suffering. With her smoking, COPD, O2 dependence, and ALEJANDRA apnea she is not a good medical candidate for her current oxycontin schema, but this will be between her and her doctor and [place]. I informed her that we would never write these doses of medicine given her condition. I will place her on oxycontin 40 bid which is still less than 50% of her normal outpatient dose, which she may resume upon discharge. She also has 10mg oxy prn available. She denies being on any benzodiazepines. UDS is consistant. Current Visit: Yes History of Present Illness Chief complaint: opioid withdrawal and pain History of present illness: Ms. García is a 61 year old female traveling from [place] under care of a ' pain physician' there. She was experiencing SOB and anxiety and was evaluated in the ED for admission to ICU. She has a h/o spinal stenosis post laminectomy and multiple vertebral compression fractures, has chronic pain syndrome, and was bein bein managed on Oxycontin 60 bid and up to 6 of the 10mg oxycodone per day for a total potential dose of 180 oxy per day. She is claiming severe pain not having her usual dose for 24 hours. Home Medications Medication Instructions Recorded Confirmed Type Albuterol Sulfate [Ventolin HFA] 2 puffs INH Q4H PRN 12/31/16 12/31/16 History Amitriptyline [Elavil] 75 mg PO BID 12/31/16 12/31/16 History Atenolol [Atenolol] 50 mg PO QAM 12/31/16 12/31/16 History Diclofenac Sodium 75 mg PO BID 12/31/16 12/31/16 History Esomeprazole Magnesium [Nexium] 40 mg PO QAM 12/31/16 12/31/16 History Fluticasone/Salmeterol 500-50 2 puff INH BID 12/31/16 12/31/16 History [Advair 500-50] Oxycodone HCl/Acetaminophen 1 each PO Q4H PRN 12/31/16 12/31/16 History [Oxycodone-Acetaminophen 10-325] Penicillin Vk Tab 500 mg PO Q12HR 12/31/16 12/31/16 History Oxycodone HCl [Oxycontin] 60 mg PO BID 01/01/17 01/01/17 History Allergies Allergy/AdvReac Type Severity Reaction Status Date / Time Sulfa (Sulfonamide Allergy Unknown/Unable Verified 12/31/16 13:49 Antibiotics) to obtain Medical,Surgical,& Family Hx - Medical History Cardio: History of: Hypertension Psychological: History of: Depression Respiratory: History of: COPD Gastrointestinal: History of: GERD Musculoskeletal: History of: Back/Neck Problems, Osteoporosis - Surgical History Abdominal Surgeries: Surgical HX of: Abdominal Surgery - Family History Family History: Denies;: Family Cancer, Family Diabetes, Family Heart Disease, Family Stroke - Social History Smoking Status: Current every day smoker Frequency of Alcohol Use: None Type of Drug Use: None Exam - Constitutional Vitals: Period Temp Pulse Resp BP Sys/Gaspar Pulse Ox Last 24 Hr 97.4 F-98.4 F 105-156 17-38 103-193/67-125 89-99 Results - Labs CBC & BMP: 01/01/17 04:35 01/01/17 04:35
[2017-01-01] MEDS: oxyCODONE ER 40 MG TABLET PO SCH ×2 (12:13→20:48)
[2017-01-01] MEDS: FLUCONAZOLE 100 MG TABLET PO SCH (13:07)
[2017-01-01 13:30] LABS: HIV Antigen/Antibody Result Nonreactive (Nonreactive)
[2017-01-01] MEDS ORDERED: methIMAzole 5 MG TABLET PO SCH (15:00)
[2017-01-01] MEDS: DILTIAZEM CD 120 MG CAPSULE PO SCH (15:06)
[2017-01-01] MEDS ORDERED: FUROSEMIDE 20 MG/2 ML VIAL IV ONE (15:11)
--- NOTE | 2017-01-01 15:19 | Hospitalist Progress Note ---
Assessment and Plan (1) Hyponatremia Status: Acute Assessment and plan: Sodium dropping. I am suspecting it might be SIADH due to her high dose Elavil. Free water restrict order urine sodium, urine osmole and serum osmol stop normal saline may have to start hypertonic saline continue to monitor serial sodium Current Visit: Yes (2) Left lower lobe pneumonia Status: Acute Assessment and plan: Dr. Briseno has seen her and does not feel like she has pneumonia, stop abx Current Visit: Yes (3) Chronic pain disorder Status: Acute Assessment and plan: patient is in drug withdrawal, thanks to Dr. Ravi for his help Current Visit: Yes (4) COPD exacerbation Status: Acute Assessment and plan: cont duonebs, stop steroids Current Visit: Yes (5) Restless leg syndrome Status: Acute Assessment and plan: needs sleep evaluation Current Visit: Yes (6) Constipation Status: Acute Assessment and plan: lactulose Current Visit: Yes (7) Hypertension Status: Acute Assessment and plan: switch to dilt and high dose propranolol Current Visit: Yes (8) Obstructive sleep apnea Status: Acute Assessment and plan: Needs sleep evaluation juju, Dr Carr Current Visit: Yes (9) Tachycardia Status: Acute Assessment and plan: due to drug withdrawal and hyperthyroidism Current Visit: Yes (10) Hyperthyroidism Status: Acute Assessment and plan: low tsh and high free T4, tapezole and propranolol Current Visit: Yes Hospitalist: Subjective Interval history: Patient continues to rise in pain. Patient was taking a lot more narcotics than she admitted to me. Dr. Ravi is seen her and agrees that she is high risk with her obstructive sleep apnea and tells her that he would not prescribe the OxyContin for her. She will receive some OxyContin in the hospital to get her out of drug withdrawal. Most of her tachycardia is most likely due to that. She does have some hypothyroidism. her hyponatremia is most likely secondary to her at high dose Elavil. We will have to discontinue that to avoid life-threatening seizure potential from hyponatremia. Exam - Constitutional Vitals: Period Temp Pulse Resp BP Sys/Gaspar Pulse Ox Last 24 Hr 97.4 F-98.2 F 112-156 17-38 103-193/67-125 89-99 Exam: Heart Rate-[tachy] Lungs-[diminished GI-[+bs soft, NT] Ext-[no edema] Neuro [Motor 5/5], [alert and oriented times 3] psych [agitated mood and affect] General [mod acute distress from pain and drug withdrawal] Results - Labs CBC & BMP: 01/01/17 04:35 01/01/17 04:35 Lab Results: I have reviewed the past 24 hour labs Labs: Negative strep screen, blood cultures 2 negative no growth, urine culture negative no growth - Diagnostic Findings Procedure: Chest x-ray: image reviewed by me (pending )
--- NOTE | 2017-01-01 15:42 | XRay Report ---
XR chest 1V portable Indication: Shortness of breath Comparison: Chest x-ray 12/31/2016 Technique: Portable AP chest was performed. Findings: Heart size is borderline. This finding is likely accentuated by the degree of inspiration and AP technique. Scattered airspace opacities in the left lung base appears stable and likely impart reflect atelectasis. Mild prominence of perihilar interstitial markings is stable. Remote left rib fractures involving the posterior lateral left rib cage appears stable. Right rib fractures are not excluded. Bones and soft tissues otherwise demonstrate little change. Impression: 1. Minimal discoid atelectasis and/or infection left lung base has changed little since comparison study. Lungs otherwise suggest chronic interstitial prominence. 01/01/2017 3:38 PM PROCEDURE INTERPRETED AT [facility] DEPARTMENT OF RADIOLOGY Final Report Signed by: Dr. Didier Vasquez
[2017-01-01] MEDS ORDERED: PENICILLIN G BENZATHINE 1,200,000 UNIT/2 ML SYRINGE IM ONE (16:00)
[2017-01-01] MEDS: SODIUM CHLORIDE 1 GM TABLET PO SCH ×2 (16:29→20:49)
--- NOTE | 2017-01-01 16:31 | Ultrasound Report ---
US venous doppler LE BI Indication: Lower extremity swelling and pain. Comparison: None. Technique: Using a transcutaneous probe, grayscale, spectral Doppler, and color Doppler images of the bilateral lower extremity venous structures were captured and stored. Grayscale images prior to and following compression were obtained. Interrogated venous structures include the bilateral common femoral vein, superficial femoral vein (proximal, mid, and distal), and popliteal vein. Findings: There is no evidence of thrombus within the interrogated venous structures. the interrogated venous segments demonstrate presence of both color flow and spectral flow. Impression: 1. No evidence of venous thrombosis. 01/01/2017 4:29 PM PROCEDURE INTERPRETED AT [facility] DEPARTMENT OF RADIOLOGY Final Report Signed by: Dr. Didier Vasquez
--- NOTE | 2017-01-01 16:57 | Sleep Medicine Consult ---
Assessment and Plan (1) Unspecified sleep apnea Status: Acute Assessment and plan: It is certainly possible that she could have sleep apnea with her history of snoring and abnormal breathing during sleep. She also is on chronic narcotic therapy and has COPD. She did not have significant O2 desaturation last night. She is currently on room air and has normal O2 sats. We will obtain home sleep testing on her overnight. This may not be a very reliable study but if it is positive for significant sleep apnea, I do think he could be taken seriously and treatment could be based upon it. An issue with her, is the fact that she does not reside here and is in transit. She needs sleep clinic follow- up with a sleep physician, particularly if this evaluation is inconclusive or diagnostic of obstructive sleep apnea. Thank you for this consult and the opportunity to participate in her care. Current Visit: Yes (2) Hypertension Status: Acute Assessment and plan: The prevalence rate for obstructive sleep apnea patients with hypertension is 35 %. That rate can be as high as 80% in patients who require 4 or more medications for blood pressure control. Current Visit: Yes (3) COPD (chronic obstructive pulmonary disease) Status: Acute Assessment and plan: The concurrent diagnosis of COPD with sleep apnea certainly would mean there is a greater risk for her to have more clinically significant O2 desaturation during sleep. Current Visit: Yes (4) Chronic pain disorder Status: Acute Assessment and plan: Certainly chronic narcotic therapy increases her risk for apneic events. She does need to be evaluated for sleep apnea. Current Visit: Yes History of Present Illness Chief complaint: Sleep apnea History of present illness: Ms. García is a 61 year old female who lives in [place], [place] and is in the process of moving to [address] About 4-5 days ago she was diagnosed with strep throat and was begun on oral penicillin. She apparently developed an episode of severe pain and shortness of breath. She complained of pain in her chest and was admitted to the ICU for observation. She has been seen by pain medicine and infectious disease. She does have a history of chronic pain and during the course of her evaluation, it was noted that she has a history of snoring. She does awaken from sleep short of breath at times. She has never been told that she stops breathing during her sleep. Her sleep is very uncomfortable related to pain. She does have symptoms of sleepiness during the day. Home Medications Medication Instructions Recorded Confirmed Type Albuterol Sulfate [Ventolin HFA] 2 puffs INH Q4H PRN 12/31/16 12/31/16 History Amitriptyline [Elavil] 75 mg PO BID 12/31/16 12/31/16 History Atenolol [Atenolol] 50 mg PO QAM 12/31/16 12/31/16 History Diclofenac Sodium 75 mg PO BID 12/31/16 12/31/16 History Esomeprazole Magnesium [Nexium] 40 mg PO QAM 12/31/16 12/31/16 History Fluticasone/Salmeterol 500-50 2 puff INH BID 12/31/16 12/31/16 History [Advair 500-50] Oxycodone HCl/Acetaminophen 1 each PO Q4H PRN 12/31/16 12/31/16 History [Oxycodone-Acetaminophen 10-325] Penicillin Vk Tab 500 mg PO Q12HR 12/31/16 12/31/16 History Oxycodone HCl [Oxycontin] 60 mg PO BID 01/01/17 01/01/17 History Allergies Allergy/AdvReac Type Severity Reaction Status Date / Time Sulfa (Sulfonamide Allergy Unknown/Unable Verified 12/31/16 13:49 Antibiotics) to obtain Review of systems: Otherwise unremarkable from a sleep standpoint. She denies previous sleep study evaluation. She does not have a primary care physician at present. Exam (Pulmonay) H&P - Constitutional Vitals: Period Temp Pulse Resp BP Sys/Gaspar Pulse Ox Last 24 Hr 97.4 F-98.2 F 112-156 15-38 103-190/67-125 89-98 Exam: She is alert and responsive. Pupils equal round reactive to light and accommodation. Extraocular movements intact. Oropharynx very dry mucosa with erythematous tongue. Neck supple without adenopathy. Chest with fair air movement without significant wheeze or rhonchi. Cardiac exam reveals a rapid regular rhythm without murmur or gallop. Abdomen soft nontender without palpable hepatosplenomegaly or mass. Extremities are without clubbing, cyanosis , or edema. Neurologically, she appears grossly intact. Medical,Surgical,& Family Hx - Medical History Cardio: History of: Hypertension Psychological: History of: Depression Respiratory: History of: COPD Gastrointestinal: History of: GERD Musculoskeletal: History of: Back/Neck Problems, Osteoporosis - Surgical History Abdominal Surgeries: Surgical HX of: Abdominal Surgery - Family History Family History: Denies;: Family Cancer, Family Diabetes, Family Heart Disease, Family Stroke - Social History Smoking Status: Current every day smoker Frequency of Alcohol Use: None Type of Drug Use: None Results - Labs CBC & BMP: 01/01/17 04:35 01/01/17 04:35 Lab Results: I have reviewed the past 24 hour labs Labs: Arterial blood gases revealed a PO2 in the 70s with decreased PCO2 and mild respiratory alkalosis.. Thyroid function studies were normal but free T4 but her TSH is suppressed. She is hyponatremic.
[2017-01-01 16:58] LABS: Calcium 8.5 MG/DL (8.5-10.1); Osmolality,Calculated 255.1 MOS/KG (273-304)
--- NOTE | 2017-01-01 17:07 | Neurology Consult Note ---
History of Present Illness History of present illness: Ms. García is a 61 year old right-handed white lady who presented to the emergency room yesterday with shortness of breath and sore throat. She said she was diagnosed with strep throat in a clinic on the [facility] about 4 days ago and treated with antibiotic. Said the sore throat has not improved and may have gotten a little worse. She has multiple comorbidities including COPD and chronic low back pain on on chronic opioid medications. He is being admitted with the main concern was the fact that she was getting her pain meds often and off for her excruciating pain. No fever or other constitutional symptoms. She denies any tingling numbness weakness tremors speech difficulties swallowing problems. Venous Dopplers is negative Home Medications Medication Instructions Recorded Confirmed Type Albuterol Sulfate [Ventolin HFA] 2 puffs INH Q4H PRN 12/31/16 12/31/16 History Amitriptyline [Elavil] 75 mg PO BID 12/31/16 12/31/16 History Atenolol [Atenolol] 50 mg PO QAM 12/31/16 12/31/16 History Diclofenac Sodium 75 mg PO BID 12/31/16 12/31/16 History Esomeprazole Magnesium [Nexium] 40 mg PO QAM 12/31/16 12/31/16 History Fluticasone/Salmeterol 500-50 2 puff INH BID 12/31/16 12/31/16 History [Advair 500-50] Oxycodone HCl/Acetaminophen 1 each PO Q4H PRN 12/31/16 12/31/16 History [Oxycodone-Acetaminophen 10-325] Penicillin Vk Tab 500 mg PO Q12HR 12/31/16 12/31/16 History Oxycodone HCl [Oxycontin] 60 mg PO BID 01/01/17 01/01/17 History Allergies Allergy/AdvReac Type Severity Reaction Status Date / Time Sulfa (Sulfonamide Allergy Unknown/Unable Verified 12/31/16 13:49 Antibiotics) to obtain 12 point system: reviewed and no additional remarkable complaints except as stated Medical,Surgical,& Family Hx - Medical History Cardio: History of: Hypertension Psychological: History of: Depression Respiratory: History of: COPD Gastrointestinal: History of: GERD Musculoskeletal: History of: Back/Neck Problems, Osteoporosis - Surgical History Abdominal Surgeries: Surgical HX of: Abdominal Surgery - Family History Family History: Denies;: Family Cancer, Family Diabetes, Family Heart Disease, Family Stroke - Social History Smoking Status: Current every day smoker Frequency of Alcohol Use: None Type of Drug Use: None Exam - Constitutional Vitals: Period Temp Pulse Resp BP Sys/Gaspar Pulse Ox Last 24 Hr 97.4 F-98.2 F 112-156 15-38 103-190/67-125 89-98 Exam: GENERAL: Patient is in no acute distress. NECK: Neck is supple. There is no JVD. No carotid bruits present. No thyroid masses. CVS: First and second heart sounds are normal. There is no S3 present. Regular rate and rhythm. RESPIRATORY: Lungs are clear to auscultation without any rales or rhonchi. ABDOMEN: Soft and non-tender. Bowel sounds are present. There is no hepatosplenomegaly. EXT: There is no palpable edema. Peripheral pulses are present. Skin: No rashes Central Nervous system: General: Alert, awake and Oriented x 3 Speech: Fluent Comprehension: Intact and normal Facial expressions: Normal Cranial Nerves: CN1/Olfactory: Normal CN II/ Optic: Normal, Visual Sanchez unreliable CN III, and : ARIADNA & EOMI CN V: Normal & intact CN VII: face is symmetric CNVIII: Normal CN XI/X/XI/XII: Intact and Normal Motor: Bulk and Tone is normal. Strength in the right 3-4/5 Strength in the left 3-4/5 Sensory: Grossly intact for all the modalities of PP, LT and temp sense Reflexes: 1+ and symmetrical Cerebellar function: Normal finger to nose testing. Toes: Equivocal Gait: Not tested at this Results - Labs CBC & BMP: 01/01/17 04:35 01/01/17 15:41 Assessment and Plan (1) Altered mental status Status: Acute Assessment and plan: Likely secondary metabolic/infectious encephalopathy as well as due to pain medications No evidence of a stroke, TIAs, epilepsy, seizures or EPS No further recommendations or intervention from neuro standpoint needed Sign off please call. Current Visit: Yes
[2017-01-01] MEDS: LACTULOSE 20 GM/30 ML UDCUP PO SCH (18:29)
--- NOTE | 2017-01-01 18:32 | ECHO Report ---
Marj García Exam Date: 01/01/2017 08:05 Referring Physician: Technologist: ayaka Soliman ARDMS, RVT Age: 61 Ht (in): 60 Wt (lb): 121 Gender: F Exam Location: [facility] Echo Indications: Essential (primary) hypertension, Dyspnea, unspecified, Chest pain, unspecified, COPD, Hyponutremia, Chronic Respiratory failure BP: 142 / 99 HR: 122 Rhythm: Sinus Technical Quality: Very technically difficult study IMPRESSIONS Technically difficult study Left ventricular ejection fraction is estimated at 60 %. Grade I/IV diastolic dysfunction (abnormal relaxation filling pattern), normal to mildly elevated filling pressures. Mildly increased right ventricular size. Moderately increased right atrial size. Moderately increased left atrial size. Mitral valve sclerosis. No mitral valve regurgitation. Aortic valve sclerosis. Morphologically normal tricuspid valve. TR jet could not be located. Pulmonic valve not well visualized. Normal pericardium without effusion. Normal ascending aorta dimension. MEASUREMENTS (Male / Female) Normal Values 2D ECHO LV Diastolic Diameter PLAX 3.8 cm 4.2 - 5.9 / 3.9 - 5.3 cm LV Systolic Diameter PLAX 2.1 cm LV Fractional Shortening PLAX 44.9 % IVS Diastolic Thickness 0.9 cm 0.6 - 1.0 / 0.6 - 0.9 cm LVPW Diastolic Thickness 0.9 cm 0.6 - 1.0 / 0.6 - 0.9 cm RV Internal Dim ED PLAX 3.0 cm Aortic Root Diameter 2.9 cm LA Systolic Diameter LX 4.6 cm 3.0 - 4.0 / 2.7 - 3.8 cm DOPPLER TR Peak Velocity 194.0 cm/s TR Peak Gradient 15.1 mmHg FINDINGS Left Ventricle Grade I/IV diastolic dysfunction (abnormal relaxation filling pattern), normal to mildly elevated filling pressures. Normal left ventricular cavity size. Normal left ventricular wall thickness. Left ventricular ejection fraction is estimated at 60 %. Right Ventricle Mildly increased right ventricular size. Right Atrium Moderately increased right atrial size. Left Atrium Moderately increased left atrial size. Mitral Valve Mitral valve sclerosis. No mitral valve regurgitation. Aortic Valve Aortic valve sclerosis. Tricuspid Valve Morphologically normal tricuspid valve.TR jet could not be located. Pulmonic Valve Pulmonic valve not well visualized. Pericardium Normal pericardium without effusion. Aorta Normal ascending aorta dimension. Frank Fountain (Electronically Signed) Final Date: 01 January 2017 18:12
[2017-01-01] MEDS: ONDANSETRON 4 MG/2 ML VIAL IV PRN (19:57)
[2017-01-01] MEDS: ENOXAPARIN 40 MG/0.4 ML SYRINGE SUBCUT SCH (20:48)
[2017-01-01] MEDS: PROPRANOLOL LA 80 MG CAPSULE PO SCH (20:49)
[2017-01-01] MEDS ORDERED: AMITRIPTYLINE 25 MG TABLET PO SCH (21:00)
[2017-01-01] MEDS ORDERED: AMITRIPTYLINE 50 MG TABLET PO SCH (21:00)
[2017-01-02] MEDS: DILTIAZEM CD 120 MG CAPSULE PO SCH ×2 (00:53→08:23)
[2017-01-02] MEDS: LACTULOSE 20 GM/30 ML UDCUP PO SCH ×3 (00:55→12:50)
[2017-01-02] MEDS: ALBUTEROL/IPRATROPIUM 3 ML NEB RESP TX SCH ×4 (04:13→14:11)
[2017-01-02] MEDS: oxyCODONE/ACETAMINOPHEN 5-325 MG TABLET PO PRN ×2 (04:57→10:15)
[2017-01-02 06:35] LABS: Basophils # 0.1 10*3/uL (0.0-0.2); Basophils % 0.2 % (0.0-0.8); Hematocrit 37.3 VOL% (35.7-47.0); Hemoglobin 13.3 GM/DL (12.0-16.0); Immature Granulocytes % 1.6 %; Immature Granulocytes Absolute 0.61 #; Lymphocytes # 3.7 10*3/uL (1.4-4.0); Mean Corpuscular HGB Conc 35.7 GM/DL (32-36); Mean Corpuscular Hemoglobin 31 PG (27-34); Mean Platelet Volume 9.9 FL (9.6-12.0); Monocytes # 3.9 10*3/uL (0.11-0.8); Monocytes % 10.4 % (1.7-12.7); Neutrophils # 28.8 10*3/uL (1.4-7.4); Neutrophils % 77.8 % (38.7-73.9); Platelet Count 423 T/CUMM (130-400); Red Blood Count 4.24 MC/CUMM (3.8-5.5); Red Cell Distribution Width 15.2 % (9.3-17.3); White Blood Count 37.1 T/CUMM (4-12)
[2017-01-02 06:38] LABS: Calcium 8.6 MG/DL (8.5-10.1); Osmolality,Calculated 254.2 MOS/KG (273-304); Potassium 4.3 MMOL/L (3.5-5.1)
[2017-01-02 06:39] LABS: Calcium 8.7 MG/DL (8.5-10.1); Osmolality,Calculated 254.2 MOS/KG (273-304); Potassium 4.3 MMOL/L (3.5-5.1)
[2017-01-02 06:51] LABS: Giant Platelets Few; Hypochromasia 1+; Lymphocytes 8 % (20-55); Platelet Estimate Adequate; Segmented Neutrophils 87 % (50-85); Total Cells Counted 100
[2017-01-02] MEDS: ONDANSETRON 4 MG/2 ML VIAL IV PRN (08:22)
[2017-01-02] MEDS: PROPRANOLOL LA 80 MG CAPSULE PO SCH (08:23)
[2017-01-02] MEDS: NICOTINE 21 MG/24 HR PATCH TRANSDERM SCH (08:23)
[2017-01-02] MEDS: FLUCONAZOLE 100 MG TABLET PO SCH (08:23)
[2017-01-02] MEDS: SODIUM CHLORIDE 1 GM TABLET PO SCH (08:23)
[2017-01-02] MEDS: oxyCODONE ER 40 MG TABLET PO SCH (08:44)
[2017-01-02] MEDS: FLUTICASONE/SALMETEROL 500-50 DISKUS 14 DOSE INH SCH (08:45)
--- NOTE | 2017-01-02 10:44 | Discharge Summary ---
<Kashmir Maldonado - Last Filed: 01/02/17 10:07> Hospital Course - Hospital Course Hospital Course: Ms. García is a 61 year old white female with a history of hypertension, smoking , COPD on home O2, ALEJANDRA, rheumatoid arthritis, depression, chronic back pain with broken vertebrae presented to the ED on 12/31 for further evaluation of shortness of breath, tachycardia, chest pain, and back pain. Pt. stated that she was seen yesterday at a clinic in [place], [place] and diagnosed with strep throat. Patient presented to our ER with sinus tachycardia, hyponatremia with a sodium of 126. Patient was placed a diltiazem drip and placed in the ICU for oxycontin withdrawal. Dr. Ravi has seen her and we started her on OxyContin and Percocet. Patient is now out of withdrawal her tachycardia is now controlled on p.o. diltiazem and propranolol. Initially TSH was 0.126 with a free T4 1.28. Serum sodium 258 and urine sodium 286. Patient's hyponatremia did not improve with normal saline. Her hyponatremia is due to high doses of Elavil. We have placed her on salt tablets to treat her hyponatremia. We will also free water restricted her. Chest x-ray suggested initially pneumonia. But Dr. Briseno from infectious disease was consulted and does not feel that she has pneumonia. She give her a one-time injection of penicillin for treatment of suspected strep pharyngitis. Her white count is further elevated today most likely secondary to high-dose steroids. Cortisol level is 9.8. Patient has all the symptoms of severe obstructive sleep apnea. We attempted to do HST in the hospital last night after Dr. Carr from sleep medicine had seen her but she had tore everything off and refused to complete the test. She is wanting to return home to see her pain management doctor tomorrow. She has high risk staying on her OxyContin with untreated alejandra. We were able to wean her off the diltiazem drip with p.o. diltiazem and propranolol. Patient has severe COPD and requires oxygen. We are trying to arrange for her portable tank for her to travel home. She does have oxygen at home but did not bring her tank with her. Patient needs to stop smoking. She also should not remain on narcotics without treating her sleep apnea. Patient was insistent on leaving today despite risk possible . She will be signing out AGAINST MEDICAL ADVICE but I will provide her with prescriptions. Dr. Ravi wrote her for OxyContin 10 tablets. She will be given a lower dose than she is normally used to but it is enough to keep her out of withdrawal. I will give her 30 Percocets. Patient is to return immediately to see her doctors in [place]. Patient seen and examined. Hospital course reviewed and edited. Diagnosis - Discharge Diagnosis (1) Dyspnea Status: Acute (2) COPD (chronic obstructive pulmonary disease) Status: Acute (3) Chronic respiratory failure Status: Acute (4) Pharyngitis Status: Acute (5) Hyponatremia Status: Acute (6) Hypertension Status: Acute Discharge Plan - Discharge Data Disposition: Left Against Medical Advice - Discharge Medications New Amitriptyline [Elavil] 50 mg PO BEDTIME #30 tablet Fluconazole Tab [Diflucan Tab] 100 mg PO DAILY #3 tablet oxyCODONE ER [OxyCONTIN] 40 mg PO Q12HR #10 tablet Propranolol LA Cap [Inderal LA Cap] 80 mg PO BID #60 capsule Sodium Chloride Tab 1 gm PO QID #60 tablet Diltiazem Cd Cap [Cardizem CD] 120 mg PO BID #60 capsule Continue Diclofenac Sodium 75 mg PO BID Fluticasone/Salmeterol 500-50 [Advair 500-50] 2 puff INH BID Albuterol Sulfate [Ventolin HFA] 2 puffs INH Q4H PRN #1 inhaler PRN Reason: Shortness Of Breath/Wheezing Esomeprazole Magnesium [Nexium] 40 mg PO QAM Oxycodone HCl/Acetaminophen [Oxycodone-Acetaminophen 10-325] 1 each PO Q4H PRN #30 tablet PRN Reason: Pain Discontinued Penicillin Vk Tab 500 mg PO Q12HR Atenolol [Atenolol] 50 mg PO QAM Amitriptyline [Elavil] 75 mg PO BID Oxycodone HCl [Oxycontin] 60 mg PO BID - Follow Up or Referral Follow Up: dr irving [Other] - 3 Days pain managementdr [Other] - 01/03/17 - Forms/Instructions Instructions: Diltiazem (By mouth), Strep Throat (DC), Oral Candidiasis (GEN), Chronic Pain (DC), Dyspnea (GEN) Exam - Constitutional Vitals: Period Temp Pulse Resp BP Sys/Gaspar Pulse Ox Last 24 Hr 98.0 F-99.5 F 72-125 8-33 81-180/59-116 89-100 Discharge Results Procedures and tests throughout hospitalization: Pending Orders 12/31/16 14:57 Blood Culture Stat 01/02/17 15:30 BMP [Basic Metabolic Panel] Q12H 01/03/17 03:30 BMP [Basic Metabolic Panel] Q12H 01/03/17 04:00 Basic Metabolic Panel IN AM Comp Blood Count Auto Diff IN AM Labs on day of discharge: Labs from last 24 hours 01/02/17 01/02/17 01/02/17 07:55 04:46 04:46 WBC RBC Hgb Hct MCV MCH MCHC RDW Plt Count MPV Neut % (Auto) Lymph % (Auto) Meigs % (Auto) Eos % (Auto) Baso % (Auto) Neut # (Auto) Lymph # (Auto) Meigs # (Auto) Eos # (Auto) Baso # (Auto) Total Counted Immature Gran % Nucleated RBC % Immature Gran # Segmented Neutrophils Lymphocytes Monocytes Nucleated RBCs # Platelet Estimate Giant Platelets Immature Plt Fraction Hypochromasia Sodium 127 L 127 L Potassium 4.3 4.3 Chloride 93 L 94 L Carbon Dioxide 23 26 Anion Gap 15.3 H 11.3 BUN 14 14 Creatinine 0.70 0.70 GFR Calculation 82 82 BUN/Creatinine Ratio 20.00 20.00 Glucose 77 79 Serum Osmolality Calculated Osmolality 254.2 L 254.2 L Calcium 8.7 8.6 Cortisol 8am Sample 9.8 Urine Osmolality Ur Random Sodium HIV 1&2 Antigen & Ab 01/02/17 01/01/17 01/01/17 04:46 Unknown 19:26 WBC 37.1 H D RBC 4.24 Hgb 13.3 Hct 37.3 MCV 88.0 MCH 31 MCHC 35.7 RDW 15.2 Plt Count 423 H MPV 9.9 Neut % (Auto) 77.8 H Lymph % (Auto) 10.0 L Meigs % (Auto) 10.4 Eos % (Auto) 0.0 Baso % (Auto) 0.2 Neut # (Auto) 28.8 H Lymph # (Auto) 3.7 Meigs # (Auto) 3.9 H Eos # (Auto) 0.0 Baso # (Auto) 0.1 Total Counted 100 Immature Gran % 1.6 Nucleated RBC % 0.0 Immature Gran # 0.61 Segmented Neutrophils 87 H Lymphocytes 8 L Monocytes 5 Nucleated RBCs # 0.00 Platelet Estimate Adequate Giant Platelets Few Immature Plt Fraction 0.0 Hypochromasia 1+ Sodium Potassium Chloride Carbon Dioxide Anion Gap BUN Creatinine GFR Calculation BUN/Creatinine Ratio Glucose Serum Osmolality 258 L Calculated Osmolality Calcium Cortisol 8am Sample Urine Osmolality Ur Random Sodium 60.0 HIV 1&2 Antigen & Ab 01/01/17 01/01/17 01/01/17 19:26 15:41 12:00 WBC RBC Hgb Hct MCV MCH MCHC RDW Plt Count MPV Neut % (Auto) Lymph % (Auto) Meigs % (Auto) Eos % (Auto) Baso % (Auto) Neut # (Auto) Lymph # (Auto) Meigs # (Auto) Eos # (Auto) Baso # (Auto) Total Counted Immature Gran % Nucleated RBC % Immature Gran # Segmented Neutrophils Lymphocytes Monocytes Nucleated RBCs # Platelet Estimate Giant Platelets Immature Plt Fraction Hypochromasia Sodium 128 L Potassium 4.0 Chloride 95 L Carbon Dioxide 20 L Anion Gap 17.0 H BUN 7 Creatinine 0.40 L GFR Calculation 99 BUN/Creatinine Ratio 17.00 Glucose 118 H Serum Osmolality Calculated Osmolality 255.1 L Calcium 8.5 Cortisol 8am Sample Urine Osmolality 286 Ur Random Sodium HIV 1&2 Antigen & Ab Nonreactive Preliminary micro results at discharge 12/31/16 14:57 Blood Culture - Preliminary Blood No growth at 1 day 12/31/16 14:42 Blood Culture - Preliminary Blood No growth at 1 day DS: Provider Date of admission: 12/31/16 15:51 Primary care physician: . No PCP Attending physician on admission: Gladys Jeter MD Consults: 12/31/16 17:28 Consult to Dietitian [CONS] Routine Reason for Dietitian: Diet Recommendations 12/31/16 17:56 Consult to Sleep Center [CONS] Routine Reason for Sleep Center: Sleep Center Physician Consult Comment: consult Dr Carr pt with hx ALEJANDRA 12/31/16 17:59 Consult to Physician [CONS] Routine Comment: recent diagnosis of strep throat Consulting Provider: Lacie Mosher Person Notified: MENDEZ @ [facility] BR[facility]ENO[facility] OFFICE Date Notified: 01/01/17 Time Notified: 08:42 12/31/16 18:04 Consult to Physician [CONS] Routine Comment: chronic pain issues Consulting Provider: Carlos Ravi When should Consulting Provider be notified: In am Person Notified: DEJA @ DR. RAVI OFFICE Date Notified: 01/01/17 Time Notified: 08:16 01/01/17 10:16 Consult to Physician [CONS] Routine Comment: high dose elavil EPS Consulting Provider: Kei Wallace Person Notified: HENRIK @ [facility] OFFICE Date Notified: 01/01/17 Time Notified: 10:44 01/01/17 15:08 Consult to Pharmacy [CONS] Routine Reason for Pharmacy Consult: Other Comment: meds that cause hyponatremia 01/01/17 19:14 Consult to Physician [CONS] Routine Comment: sinus tachycardia Consulting Provider: Micheal Fountain When should Consulting Provider be notified: In am 01/02/17 10:22 Consult to Case Mgmt/Social Srvs [CONS] Routine Reason for Case Mgmt/Social Srvs: Other Equipment Consult Comment: 87% RA portable oxygen tank Discharging clinician: Kashmir Maldonado NP <Gladys Jeter R - Last Filed: 01/02/17 11:56> Hospital Course - Time spent with patient Time with patient DS: Greater than 30 minutes (45 min) Diagnosis - Discharge Diagnosis (1) Hyponatremia Status: Acute (2) Left lower lobe pneumonia Status: Acute (3) Chronic pain disorder Status: Acute (4) COPD exacerbation Status: Acute (5) Restless leg syndrome Status: Acute (6) Constipation Status: Acute (7) Hypertension Status: Acute (8) Obstructive sleep apnea Status: Acute (9) Tachycardia Status: Acute (10) Hyperthyroidism Status: Acute Discharge Plan - Discharge Data Condition at Discharge: Stable Discharge Diet: heart healthy Activity: resume usual activities as tolerated Hygiene: no restrictions Weight Bearing at Discharge: full weight bearing Driving: other (not driving ever) Exam - Constitutional General appearance: normal weight, no acute distress - Respiratory Respiratory exam: Present: clear to auscultation bilaterally, decreased breath sounds. Absent: wheezes - Cardiovascular Cardiovascular exam: Present: regular rate and rhythm - GI/Abdominal GI/Abdominal exam: Present: normal bowel sounds, soft. Absent: tenderness
--- NOTE | 2017-01-02 11:15 | Pain Management Progress Note ---
Assessment and Plan (1) Chronic pain disorder Status: Acute Assessment and plan: Withdrawal sxs also no longer a problem. She is medically stable and requesting early discharge so she can get back to her pain doctor in [place] but wont make her refill date tomorrow. Her appointment was moved to next Friday, I will provide Rx oxy 40 bid for 5 days to get her there. Current Visit: Yes Pain - Subjective Interval history: Pain controlled on oxycontin 40 bid, a substantial dose less than her outpatient dose. Exam - Constitutional Vitals: Period Temp Pulse Resp BP Sys/Gaspar Pulse Ox Last 24 Hr 98.0 F-99.5 F 72-125 8-33 81-180/59-116 89-100 Results - Labs CBC & BMP: 01/02/17 04:46 01/02/17 04:46 Specialty Discharge - Follow Up or Referrals
[2017-01-02] MEDS ORDERED: SODIUM CHLORIDE 1 GM TABLET PO SCH (13:00)
[2017-01-02 15:56] VITALS: BP 112/85
--- NOTE | 2017-01-08 16:47 | Physician Query Form ---
CLICK EDIT DOCUMENT TO SELECT QUERY ANSWER --> OK --> SIGN Doris Andrew RN Clinical Budget Manager W) [phone] (f) [phone] [email or web address]: Make your selection(s) from the choices in EACH section by typing an "x" and enter comments in the comment section. Please use your independent medical judgment in providing your response. This request does not imply that any particular answer is desired or expected. CLINICAL INDICATORS: (Providers should not edit this section) Based on documentation of "Hyponatremia" "Acute altered mental status" "Likely secondary metabolic/infectious encephalopathy" "Pneumonia" Treated with NS Bolus, IV Rocephin, IV Maxipime, and IV Levaquin. Please clarify for cause of altered mental status. ACUITY: (x ) Acute ( ) Acute on Chronic ( ) Chronic ( ) Clinically unable to determine NATURE: ( x) Delirium due to general medical condition ( ) Dementia ( ) Encephalopathy ( ) Unconscious ( ) Transient level of awareness ( ) Comatose ( ) Locked-in State ( ) Persistent Vegetative State ( ) Other, please specify: ( ) Clinically unable to determine Please indicate the underlying cause of the altered mental status (CHECK ALL THAT APPLY): ( ) Baseline dementia ( ) Alzheimer's disease ( ) Parkinson's disease ( ) Lewy body dementia ( ) Acute stroke ( ) Late effect of stroke ( ) Reactive (from emotional stress, psychological trauma) ( ) Due to narcotics/other drugs ( ) Post procedural delirium ( ) Transient ischemic attack ( ) Generalized cerebral edema ( ) Normal pressure hydrocephalus ( ) Psychiatric illness ( ) Other, please specify: ( ) Clinically unable to determine Please indicate if there is an infection, sepsis, dehydration or specific organ failure that is causing the dementia. Be specific with clarifying the relationship between that process and the mental status change. COMMENTS: PLEASE ALSO DOCUMENT RESPONSE IN PROGRESS NOTES AND/OR DISCHARGE SUMMARY Use of terms such as suspected, likely, or probable (associated with a specific diagnosis that is being evaluated, monitored, or treated as if it exists) are acceptable and can be restated in the discharge summary if not ruled out. MTDD
== END 2017-01-02 15:20 | disposition left against medical advice (07) | DRG 894 ==
LOC: EDSEX → N.ED 13:43 → N.EDINP 15:51 → N.ICU 17:20
PROVIDERS: ADMIT Internal Medicine; ATTEND Internal Medicine